=== PATIENT | male | born 1985 | race Two or more races ===

== ENCOUNTER 2020-08-24 12:34 | Emergency (ER) | payer MEDICAID, OTHER ==
[~2020-08-24] VITALS: Ht 177.8 cm; Wt 81.6 kg
[2020-08-24 13:56] VITALS: BP 155/108
== END 2020-08-24 15:22 | disposition home or self-care (01) ==
LOC: ER 12:34
DX: F41.8 Other specified anxiety disorders (principal); J06.9 Acute upper respiratory infection, unspecified